=== PATIENT | male | born 1985 | race Caucasian/White ===

== ENCOUNTER → 2020-01-08 | Outpatient (CLI) | payer OTHER ==
--- NOTE | 2020-01-08 09:54 | XR ---
EXAMINATION TYPE: XR forearm RT DATE OF EXAM: 01/08/2020 CLINICAL HISTORY: pain TECHNIQUE: Frontal and lateral images of the right forearm are obtained. COMPARISON: None. FINDINGS: There is no acute fracture/dislocation evident. The joint spaces appear within normal limi ts. The overlying soft tissue appears unremarkable. IMPRESSION: There is no acute fracture or dislocation. ICD 10 NO FRACTURE, INITIAL EVALUATION
== END | disposition home or self-care (01) ==
LOC: RADXRMAIN 09:35
PROVIDERS: ATTEND Emergency Medicine
DX: S57.81XA Crushing injury of right forearm, initial encounter (principal)

== ENCOUNTER → 2020-01-19 | Outpatient (CLI) | payer OTHER ==
--- NOTE | 2020-01-19 12:44 | US ---
EXAMINATION TYPE: US venous doppler duplex UE RT DATE OF EXAM: 01/19/2020 COMPARISON: NONE CLINICAL HISTORY: S57.81XD, S50.11XD,. SIDE PERFORMED: Right Right Arm: Negative for DVT IMPRESSION: No evidence for DVT at this time.
== END | disposition home or self-care (01) ==
LOC: RADUSWWP 11:32
PROVIDERS: ATTEND Emergency Medicine
DX: S57.81XD Crushing injury of right forearm, subsequent encounter (principal)

== ENCOUNTER → 2024-06-21 | Outpatient (CLI) | payer BC ==
--- NOTE | 2024-06-21 11:09 | XR ---
EXAMINATION TYPE: XR cervical spine 5 views comp, XR shoulder complete 3 views LT, XR thoracic spine 3 views DATE OF EXAM: 06/21/2024 COMPARISON: NONE CLINICAL INDICATION: Male, 38 years old with history of M54.2 CERVICALGIA M54.9 DORSALGIA M25.512 LEF T SHOULDER PAIN; FINDINGS: Cervical spine: Mild to moderate uncovertebral joint and facet arthropathy mid to lower cervical spine. Obliquity agrawal its assessment of the right-sided neuroforamen. Suspect at least mild bony neuroforaminal narrowing o n the left at C5-C6. Mild degenerative disc disease and endplate spondylosis C5-C6. There is straight ening of the normal cervical lordosis but otherwise preserved alignment. No predental space widening or prevertebral soft tissue swelling. Normal odontoid view. Thoracic spine: Vertebral body heights are preserved and alignment is maintained. 12 rib bearing thoracic vertebral bodies. All pedicles are visualized. Left shoulder: Minimal marginal spurring at the AC joint. Subacromial space is preserved. Smooth delineation greater tuberosity. No tendinous or bursal calcifications. No acute fracture, subluxation, or dislocation. IMPRESSION: 1. Cervical spine: Mild to moderate facet and uncovertebral joint arthropathy mid to lower cervical s pine. Mild degenerative disc disease C5-C6. Mild bony neural foraminal narrowing on the left at C5-C6 . Straightening of the normal cervical lordosis could be positional or due to muscle spasm. No malali gnment. 2. Thoracic spine: No vertebral compression collapse or malalignment. 3. Left shoulder: Minimal early degenerative spurring at the AC joint. No acute osseous abnormality s een. [facility], Workstation: [facility], 06/21/2024 11:07 AM
== END | disposition home or self-care (01) ==
LOC: RADXRMAIN 10:30
PROVIDERS: ATTEND Pediatrics
DX: M19.012 Primary osteoarthritis, left shoulder (principal); M47.812 Spondylosis without myelopathy or radiculopathy, cervical region; M50.322 Other cervical disc degeneration at C5-C6 level
CPT/HCPCS: 72050; 72070